=== PATIENT | male | born 1965 | race Caucasian/White ===

== ENCOUNTER → 2018-05-17 | Outpatient (CLI) | payer OTHER ==
[~2018-05-17] MED LIST: AMARYL 2MG T2 MG/TAB PO; AMITRIPTYLINE H25 M1 PO; DOXYCYCLINE 10100 MG PO; FORT1000TA; GLUCOPHAGE1000 MG PO; LANTUS100 U/ML; NEURONTIN100 MG/CAP PO; NEURONTIN300 MG/CAP PO; NIASPAN 500MG500 MG PO; NOVOLOG 100U100 U/M1; OMEGA-3 1450725 MG PO; PRINIVIL40 MG PO; TRICOR145 MG PO; ZESTRIL40 MG PO
== END ==
LOC: COL.RAD 13:00
DX: M75.41 Impingement syndrome of right shoulder (principal); M19.011 Primary osteoarthritis, right shoulder; S43.491A Other sprain of right shoulder joint, initial encounter; M75.101 Unspecified rotator cuff tear or rupture of right shoulder, not specified as traumatic

== ENCOUNTER 2018-05-21 14:07 | Outpatient (RCR) | payer OTHER | END 2018-07-31 | disposition home or self-care (01) | LOC: WSOH | DX: M19.011 Primary osteoarthritis, right shoulder (principal); F17.220 Nicotine dependence, chewing tobacco, uncomplicated ==

== ENCOUNTER 2020-07-30 08:19 | Day surgery (SDC) | payer BC ==
[~2020-07-30] VITALS: Ht 190.5 cm; Wt 110.4 kg
[2020-07-30] MEDS ORDERED: ASPIRIN E.C. 8181 MG PO (08:43)
[2020-07-30] MEDS ORDERED: TOPROL XL 50MG50 MG PO (08:43)
[2020-07-30] MEDS ORDERED: BRILINTA90 MG PO (08:44)
[2020-07-30] MEDS ORDERED: PRINIVIL2.5 MG PO (08:44)
[2020-07-30] MEDS ORDERED: LIPITOR 80MG80 MG PO (08:44)
[2020-07-30] MEDS ORDERED: GLUCOPHAGE500 MG/TAB PO (08:45)
[2020-07-30] MEDS ORDERED: JANUVIA 100MG100 MG PO (08:45)
[2020-07-30 08:54] VITALS: BP 135/91; PULSE 85; TEMP 97.8
[2020-07-30 09:55] VITALS: BP 158/45; PULSE 76
--- NOTE | 2020-07-30 09:55 | NUR ---
Pt to [facility] via cart from ENDO. Pt awake and alert. Pt ambulates to recliner. Warm blanket provided. Muffin and soda given per pt request. Call light within reach.
[2020-07-30 10:10] VITALS: BP 114/80; PULSE 75
--- NOTE | 2020-07-30 10:10 | NUR ---
Pt continuing to rest. Tolerating food and fluids without difficulties. Call light within reach.
[2020-07-30 10:25] VITALS: BP 118/87; PULSE 76
--- NOTE | 2020-07-30 10:25 | NUR ---
IV site discontinued with all parts intact. Discharge instructions reviewed. Pt voices understanding. Pt up to dress. Call light within reach.
--- NOTE | 2020-07-30 10:35 | NUR ---
Pt escorted to private car via wheel chair. Pt accompanied home by his friend Aruna.
== END 2020-07-30 10:35 | disposition home or self-care (01) ==
LOC: SDCO 08:19
DX: Z12.11 Encounter for screening for malignant neoplasm of colon (principal); D12.5 Benign neoplasm of sigmoid colon; D12.2 Benign neoplasm of ascending colon; D12.8 Benign neoplasm of rectum; G47.33 Obstructive sleep apnea (adult) (pediatric); E11.9 Type 2 diabetes mellitus without complications; I10 Essential (primary) hypertension; E78.00 Pure hypercholesterolemia, unspecified; I25.10 Atherosclerotic heart disease of native coronary artery without angina pectoris; I25.2 Old myocardial infarction; F32.9 Major depressive disorder, single episode, unspecified; F41.9 Anxiety disorder, unspecified; Z88.0 Allergy status to penicillin; Z79.84 Long term (current) use of oral hypoglycemic drugs; Z95.5 Presence of coronary angioplasty implant and graft
CPT/HCPCS: J2704; J7030